=== PATIENT | male | born 1935 | race Caucasian/White ===

== ENCOUNTER 2017-04-20 11:11 | Emergency (ER) | payer MEDICARE ==
[2017-04-20 11:33] VITALS: RESP 18
[2017-04-20] MEDS ORDERED: OXYMETAZOLINE 0.05% NASL SPRAY 1 SPRAY BOTTLE NASAL STA (11:54)
--- NOTE | 2017-04-20 12:54 | ED ---
General Adult HPI - General Chief complaint: ENT Stated complaint: Bloody nose Time Seen by Provider: 04/20/17 11:45 Source: patient, RN notes reviewed, old records reviewed Mode of arrival: wheelchair Limitations: no limitations - History of Present Illness Initial comments: 81-year-old male presenting with nosebleed. Patient has had intermittent nosebleed over the past 3 days. Initially began after returning from the [place]. Began just as the patient was exiting the plane. Denies any URI symptoms. Denies any nasal trauma. Patient is currently on a baby aspirin, no other anticoagulation. He states that at home he had significant bleeding. This seemed to becoming predominantly on the right nostril. - Related Data Previous Rx's Medication Instructions Recorded Amoxic-Pot Clav 875-125Mg 1 tab PO Q12HR #10 tablet 04/20/17 [Augmentin 875-125] Allergies Allergy/AdvReac Type Severity Reaction Status Date / Time No Known Allergies Allergy Verified 04/20/17 11:29 Review of Systems ROS Statement: Those systems with pertinent positive or pertinent negative responses have been documented in the HPI. ROS Other: All systems not noted in ROS Statement are negative. Past Medical History Past Medical History: No Reported History History of Any Multi-Drug Resistant Organisms: None Reported Past Surgical History: No Surgical Hx Reported Past Psychological History: No Psychological Hx Reported Smoking Status: Never smoker Past Alcohol Use History: Occasional Past Drug Use History: None Reported General Exam Limitations: no limitations General appearance: alert, in no apparent distress Head exam: Present: atraumatic, normocephalic Eye exam: Present: normal appearance, PERRL ENT exam: Present: other (Epistaxis from right naris, there is posterior oropharynx bleeding on initial evaluation, no visualized bleeding vessel on exam , too much blood clots and active bleeding.) Respiratory exam: Present: normal lung sounds bilaterally. Absent: respiratory distress Cardiovascular Exam: Present: regular rate, normal rhythm GI/Abdominal exam: Present: soft. Absent: distended Extremities exam: Present: normal inspection Neurological exam: Present: alert, oriented X3, CN II-XII intact. Absent: motor sensory deficit Skin exam: Present: warm, dry, intact. Absent: pallor Course Vital Signs 04/20/17 11:30 Temperature 98.4 F Pulse Rate 117 H Respiratory 18 Rate Blood Pressure 123/81 O2 Sat by Pulse 97 Oximetry Medical Decision Making - Medical Decision Making 81-year-old male presenting with brisk epistaxis. No cells placed, this lasted improved symptoms. This is after bacitracin and Afrin was applied. Merocel removed, Rhino Rocket is placed, tamponade is achieved. Patient is observed in the emergency department, there is no anterior or posterior bleeding on exam. He is given strict return parameters. He is started on antibiotics, and will follow up with ENT. Disposition Clinical Impression: Epistaxis Disposition: HOME SELF-CARE Condition: Good Instructions: Nosebleed (ED) Prescriptions: Amoxic-Pot Clav 875-125Mg [Augmentin 875-125] 1 tab PO Q12HR #10 tablet Referrals: Grant Vargas MD [Primary Care Provider] - 1-2 days Ankur Guaman DO [Doctor of Osteopathic Medicine] - 1-2 days Time of Disposition: 12:52
[2017-04-20 13:07] VITALS: BP 124/80; PULSE 126; TEMP 98.1
== END 2017-04-20 13:06 | disposition home or self-care (01) ==
LOC: EC 11:11
DX: R04.0 Epistaxis (principal); J39.2 Other diseases of pharynx; Z79.82 Long term (current) use of aspirin
CPT/HCPCS: 30901; 99283

== ENCOUNTER 2019-10-11 11:51 | Emergency (ER) | payer MEDICARE ==
[2019-10-11 12:02] VITALS: TEMP 98.3
--- NOTE | 2019-10-11 13:03 | ED ---
General Adult HPI - General Chief complaint: Extremity Injury, Lower Stated complaint: lt foot swelling Time Seen by Provider: 10/11/19 12:05 Source: patient Mode of arrival: wheelchair Limitations: no limitations - History of Present Illness Initial comments: 84-year-old male without any significant past medical history presents to the emergency department for left leg pain. Patient states that 2 weeks ago he fell off of a roof onto his left side. Patient states that he did have some mild pain in his ankle and hip at that time but it was bearable. Patient states he dropped a log on his left ankle a few days ago which worsened the pain. Patient states that sometimes he has noticed swelling in the left leg. Patient is able to ambulate however family member states he walks with somewhat of a limp. Patient did not hit his head when he fell 2 weeks ago. He does not take blood thinners. Patient does report he has a shooting pain from the left ankle to the left hip at times. He denies any lumbar pain. Patient has no other complaints at this time including shortness of breath, chest pain, abdominal pain, nausea or vomiting, headache, or visual changes. - Related Data Home Medications Medication Instructions Recorded Confirmed Aspirin 81 mg PO DAILY 04/20/17 04/20/17 Lisinopril (Unknown Dose) 1 tab PO DAILY 04/20/17 04/20/17 Previous Rx's Medication Instructions Recorded Amoxic-Pot Clav 875-125Mg 1 tab PO Q12HR #10 tablet 04/20/17 [Augmentin 875-125] predniSONE 30 mg PO DAILY 5 Days #15 tab 10/11/19 Allergies Allergy/AdvReac Type Severity Reaction Status Date / Time No Known Allergies Allergy Verified 10/11/19 11:55 Review of Systems ROS Statement: Those systems with pertinent positive or pertinent negative responses have been documented in the HPI. ROS Other: All systems not noted in ROS Statement are negative. Past Medical History Past Medical History: No Reported History History of Any Multi-Drug Resistant Organisms: None Reported Past Surgical History: No Surgical Hx Reported Past Psychological History: No Psychological Hx Reported Smoking Status: Never smoker Past Alcohol Use History: Occasional Past Drug Use History: None Reported General Exam Limitations: no limitations General appearance: alert, in no apparent distress Head exam: Present: atraumatic, normocephalic, normal inspection Eye exam: Present: normal appearance, PERRL, EOMI. Absent: scleral icterus, conjunctival injection, periorbital swelling ENT exam: Present: normal exam, mucous membranes moist Neck exam: Present: normal inspection, full ROM. Absent: tenderness, meningismus, lymphadenopathy Respiratory exam: Present: normal lung sounds bilaterally. Absent: respiratory distress, wheezes, rales, rhonchi, stridor Cardiovascular Exam: Present: regular rate, normal rhythm, normal heart sounds. Absent: systolic murmur, diastolic murmur, rubs, gallop, clicks GI/Abdominal exam: Present: soft, normal bowel sounds. Absent: distended, tenderness, guarding, rebound, rigid Extremities exam: Present: full ROM (full range of motion of the left lower extremity including the hip and knee and ankle joints.), tenderness (mild tenderness to the dorsum of the left ankle. no tenderness to the left hip or knee. No tenderness of the left foot.), normal capillary refill (capillary refill less than 2 seconds, DP pulse 2+ in the left lower extremity.), other (patient does have scaling noted to the distal left leg.). Absent: calf tenderness (no calf tenderness or significant edema noted.) Back exam: Absent: vertebral tenderness (no thoracic or lumbar spine tenderness) Course Vital Signs 10/11/19 11:56 Temperature 98.3 F Pulse Rate 59 L Respiratory 18 Rate Blood Pressure 159/92 O2 Sat by Pulse 98 Oximetry Medical Decision Making - Medical Decision Making X-ray of the pelvis and left hip shows mild degenerative changes without acute osseous abnormality. Left ankle shows mild spurring with soft tissue swelling. Plantar heel spur. No acute osseous abnormality. Ultrasound shows no evidence of DVT within the lower extremity. HPI physical exam as documented. Patient reports pain radiates from the left foot and left hip. Worsens with certain movements. This comes as a gnawing sharp pain. Patient was evaluated by Dr. Walker as well. At this time pain is consistent with sciatica. Patient will be started on steroids and Tylenol and will follow-up with Dr. Marte. Discussed stretches. Will return here for any worsening symptoms. Disposition Clinical Impression: Leg pain Disposition: HOME SELF-CARE Condition: Good Instructions (If sedation given, give patient instructions): Sciatica (ED), Lower Back Exercises (ED) Additional Instructions: please take Tylenol for pain. Take steroid as directed. Please try low back exercises as discussed. Follow-up with Dr. Marte by calling tomorrow for earliest appointment. Return to the emergency room for any worsening symptoms. Prescriptions: predniSONE 30 mg PO DAILY 5 Days #15 tab Is patient prescribed a controlled substance at d/c from ED?: No Referrals: Grant Vargas MD [Primary Care Provider] - 1-2 days Sonal Marte DO [Doctor of Osteopathic Medicine] - 1-2 days Time of Disposition: 14:01
--- NOTE | 2019-10-11 13:07 | XR ---
EXAMINATION TYPE: AP view pelvis and 2 views left hip XR ankle complete 3 views LT DATE OF EXAM: 10/11/2019 COMPARISON: NONE HISTORY: 84-year-old male pain and swelling after fall. FINDINGS: Pelvis and left hip: Mild degenerative change at both hips. SI joints and pubic symphysis appear intact. Smooth delineatio n to the arcuate lines of the sacrum. No acute fracture, subluxation, or dislocation is seen. Some co rticated density is seen adjacent to the left greater trochanter suggesting heterotopic ossification such as as a sequela of chronic gluteal tendinopathy. Degenerative change lower lumbar spine. Left ankle: Corticated bone density below the medial malleolus. Some degenerative spurring is present. Ankle mort ise congruent with preservation of the distal tibiofibular overlap. Moderate sized plantar calcaneal spur. Vascular calcifications. Some soft tissue swelling is noted. No acute fracture, subluxation, or dislocation. IMPRESSION: 1. Pelvis and left hip: Mild degenerative change at both sites. No acute osseous abnormal ECG. 2. Left ankle: Some degenerative spurring such as at the medial malleolus. Soft tissue swelling. 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 No acute osseous abnormality seen.
--- NOTE | 2019-10-11 13:34 | US ---
EXAMINATION TYPE: US venous doppler duplex LE LT DATE OF EXAM: 10/11/2019 12:12 PM COMPARISON: NONE CLINICAL HISTORY: 84-year-old male pain. SIDE PERFORMED: Left TECHNIQUE: The lower extremity deep venous system is examined utilizing real time linear array sonog ivan with graded compression, doppler sonography and color-flow sonography. FINDINGS: VESSELS IMAGED: External Iliac Vein (EIV) Common Femoral Vein Deep Femoral Vein Greater Saphenous Vein * Femoral Vein Popliteal Vein Small Saphenous Vein * Proximal Calf Veins (* superficial vessels) Left Leg: Negative for DVT IMPRESSION: No evidence for DVT within the left lower extremity imaged from the groin to the upper calf.
[2019-10-11 14:35] VITALS: BP 141/79; PULSE 88; RESP 16
== END 2019-10-11 14:18 | disposition home or self-care (01) ==
LOC: EC 11:51
DX: M77.32 Calcaneal spur, left foot (principal); M16.11 Unilateral primary osteoarthritis, right hip
CPT/HCPCS: 73502; 99284

== ENCOUNTER 2023-02-24 16:13 | Emergency (ER) | payer MEDICARE ==
--- NOTE | 2023-02-24 16:22 | ED ---
General Adult HPI - General Stated complaint: stroke symptoms Time Seen by Provider: 02/24/23 16:16 Source: family, EMS, RN notes reviewed, old records reviewed Limitations: altered mental status, physical limitation - History of Present Illness Initial comments: Patient is a 87-year-old male presenting to the emergency department by EMS for potential for stroke. Last known well was 2:30 PM. Patient went outside and was moving snow. Family did witness him moving the snow around and then went into the backyard and did not see him. They did go back and found patient lying in the snow altered and weak. No reported trauma. Patient is nonverbal and not able to provide any history. - Related Data Home Medications Medication Instructions Recorded Confirmed Aspirin 81 mg PO DAILY 04/20/17 04/20/17 Lisinopril (Unknown Dose) 1 tab PO DAILY 04/20/17 04/20/17 Previous Rx's Medication Instructions Recorded Amoxic-Pot Clav 875-125Mg 1 tab PO Q12HR #10 tablet 04/20/17 [Augmentin 875-125] predniSONE 30 mg PO DAILY 5 Days #15 tab 10/11/19 Allergies Allergy/AdvReac Type Severity Reaction Status Date / Time No Known Allergies Allergy Verified 02/24/23 16:20 Review of Systems ROS Statement: Those systems with pertinent positive or pertinent negative responses have been documented in the HPI. ROS Other: All systems not noted in ROS Statement are negative. Limitations: ROS unobtainable due to patients medical condition Neurological: Reports: weakness Past Medical History Past Medical History: No Reported History History of Any Multi-Drug Resistant Organisms: None Reported Past Surgical History: No Surgical Hx Reported Past Psychological History: No Psychological Hx Reported Smoking Status: Never smoker Past Alcohol Use History: Occasional Past Drug Use History: None Reported General Exam Limitations: altered mental status, physical limitation General appearance: alert Head exam: Present: atraumatic Eye exam: Present: normal appearance, other (Eyes deviated to the left) ENT exam: Present: normal exam Neck exam: Present: normal inspection Respiratory exam: Present: normal lung sounds bilaterally Cardiovascular Exam: Present: regular rate, normal rhythm GI/Abdominal exam: Present: soft. Absent: tenderness Extremities exam: Present: normal inspection Neurological exam: Present: alert, altered Expanded Neurological exam: Present: other (Limited exam secondary to patient having difficulty following commands. Unable to assess sensation. Eyes deviated to the left) Cranial nerves: EOM's Intact: Abnormal Right, Facial Palsy with Forehead Movement: Abnormal Right (Right facial droop) Motor strength exam: RUE: 2/1, LUE: 5, RLE: 2/1, LLE: 5 Eye Response: (4) open spontaneously Motor Response: (4) withdraws to pain Verbal Response: (1) no verbal response Psychiatric exam: Present: flat affect Skin exam: Present: normal color Course Vital Signs 02/24/23 16:15 Pulse Rate 78 Respiratory 18 Rate Blood Pressure 164/125 O2 Sat by Pulse 95 Oximetry Medical Decision Making - Medical Decision Making At 1630 case was discussed with Dr. Navarrete and he will review films and call back. Was pt. sent in by a medical professional or institution (, PA, ASSEMBLER INSULATOR, urgent care, hospital, or [facility]...) When possible be specific @ -No Did you speak to anyone other than the patient for history (EMS, parent, family, police, friend...)? What history was obtained from this source @ -EMS and family provides history as patient is nonverbal Did you review nursing and triage notes (agree or disagree)? Why? @ -I reviewed and agree with nursing and triage notes Were old charts reviewed (outside hosp., previous admission, EMS record, old EKG, old radiological studies, urgent care reports/EKG's, [facility] records)? Report findings @ -No old charts were reviewed Differential Diagnosis (chest pain, altered mental status, abdominal pain women, abdominal pain men, vaginal bleeding, weakness, fever, dyspnea, syncope, headache, dizziness, GI bleed, back pain, seizure, CVA, palpatations, mental health, musculoskeletal)? @ -Differential Weakness: Hypoglycemia, shock, sepsis, hyponatremia, anemia, infection, MA, ETOH, adverse medicine reaction, overdose, stroke, this is not meant to be an all-inclusive list. EKG interpreted by me (3pts min.). @ -As above X-rays interpreted by me (1pt min.). @ -None done CT interpreted by me (1pt min.). @ -Computed tomography scan of the brain shows left intracranial hemorrhage U/S interpreted by me (1pt. min.). @ -None done What testing was considered but not performed or refused? (CT, X-rays, U/S, labs)? Why? @ -None What meds were considered but not given or refused? Why? @ -Considered TPA however patient has intercranial hemorrhage and not a candidate. Risks outweigh benefits. Did you discuss the management of the patient with other professionals (professionals i.e. , PA, ASSEMBLER INSULATOR, lab, RT, psych nurse, executive secretary social welfare, pattern molder, teacher, aoc director combat plans officer, case resource manager)? Give summary @ -Case was discussed with Dr. Navarrete who does recommend transfer. Transfer team contacted and we'll attempt to transfer patient to [facility]. He recommends systolic blood pressure less than 150. Discussion regarding intubation and he does not feel is necessary at this time. Was smoking cessation discussed for >3mins.? @ -No Was critical care preformed (if so, how long)? @ -33 minutes critical care time Were there social determinants of health that impacted care today? How? (Homelessness, low income, unemployed, alcoholism, drug addiction, transportation, low edu. Level, literacy, decrease access to med. care, [place] [facility], rehab)? @ -No Was there de-escalation of care discussed even if they declined (Discuss DNR or withdrawal of care, Hospice)? DNR status @ -No What co-morbidities impacted this encounter? (DM, HTN, Smoking, COPD, CAD, Cancer, CVA, ARF, Chemo, Hep., AIDS, mental health diagnosis, sleep apnea, morbid obesity)? @ -None Was patient admitted / discharged? Hospital course, mention meds given and route, prescriptions, significant lab abnormalities, going to OR and other pertinent info. @ -Patient reevaluated and unchanged. Patient still does protect airway. Family updated. Patient will be transferred Undiagnosed new problem with uncertain prognosis? @ -No Drug Therapy requiring intensive monitoring for toxicity (Heparin, Nitro, Insulin, Cardizem)? @ -No Were any procedures done? @ -No Diagnosis/symptom? @ -Intercranial hemorrhage Acute, or Chronic, or Acute on Chronic? @ -Acute Uncomplicated (without systemic symptoms) or Complicated (systemic symptoms)? @ -Complicated with weakness Side effects of treatment? @ -No Exacerbation, Progression, or Severe Exacerbation? @ -No Poses a threat to life or bodily function? How? (Chest pain, USA, MA, pneumonia, PE, COPD, DKA, ARF, appy, cholecystitis, CVA, Diverticulitis, Homicidal, Suicidal, threat to staff... and all critical care pts) @ -No Eunice Lange notified, Dr. Howard to accept transfer - Lab Data Result diagrams: 02/24/23 16:35 Lab Results 02/24/23 02/24/23 02/24/23 Range/Units 16:35 16:35 16:36 WBC 9.4 (3.8-10.6) k/uL RBC 4.80 (4.30-5.90) m/uL Hgb 15.4 (13.0-17.5) gm/dL Hct 46.6 (39.0-53.0) % MCV 97.1 (80.0-100.0) fL MCH 32.2 (25.0-35.0) pg MCHC 33.1 (31.0-37.0) g/dL RDW 13.3 (11.5-15.5) % Plt Count 345 (150-450) k/uL MPV 7.3 Neutrophils % 74 % Lymphocytes % 15 % Monocytes % 5 % Eosinophils % 4 % Basophils % 1 % Neutrophils # 6.9 (1.3-7.7) k/uL Lymphocytes # 1.4 (1.0-4.8) k/uL Monocytes # 0.5 (0-1.0) k/uL Eosinophils # 0.4 (0-0.7) k/uL Basophils # 0.0 (0-0.2) k/uL PT 10.1 (10.0-12.5) sec INR 0.9 (<1.2) APTT 22.1 (22.0-30.0) sec POC Glucose (mg/dL) 48 L (70-110) mg/dL POC Glu [employer] Specialist ID Monique Bhatt Critical Care Time Critical Care Time: Yes Total Critical Care Time: 33 Disposition Clinical Impression: Intracranial hemorrhage Disposition: OTHER INSTITUTION NOT DEFINED Condition: Critical Is patient prescribed a controlled substance at d/c from ED?: No Referrals: Grant Vargas [Primary Care Provider] - 1-2 days Time of Disposition: 16:51 - Out of Hospital Transfer - Req. Specs Out of Hospital Transfer - Requested Specifics: Other Emergency Center
[2023-02-24 16:29] VITALS: PULSE 78; RESP 18
[2023-02-24 16:38] LABS: Glucose,Whole Blood 48 mg/dL (70-110)
[2023-02-24 16:43] LABS: Basophils % (A) 1 %; Eosinophils # (A) 0.4 k/uL (0-0.7); Eosinophils % (A) 4 %; HCT 46.6 % (39.0-53.0); HGB 15.4 gm/dL (13.0-17.5); Lymphocytes # (A) 1.4 k/uL (1.0-4.8); Lymphocytes % (A) 15 %; MCH 32.2 pg (25.0-35.0); MCHC 33.1 g/dL (31.0-37.0); MCV 97.1 fL (80.0-100.0); Mean Platelet Volume 7.3; Monocytes # (A) 0.5 k/uL (0-1.0); Monocytes % (A) 5 %; Neutrophils # (A) 6.9 k/uL (1.3-7.7); Neutrophils % (A) 74 %; Platelet Count 345 k/uL (150-450); RDW 13.3 % (11.5-15.5); WBC 9.4 k/uL (3.8-10.6)
[2023-02-24 16:54] LABS: INR 0.9 (<1.2); Partial Thromboplastin Time 22.1 sec (22.0-30.0); Prothrombin Time 10.1 sec (10.0-12.5)
[2023-02-24] MEDS ORDERED: niCARdipine 20 MG in SODIUM CHLORIDE 0.9% 192 ML IV SCH (17:00)
--- NOTE | 2023-02-24 17:00 | CT ---
EXAMINATION TYPE: CT brain wo con for TPA CT DLP: 1101.6 mGycm, Automated exposure control for dose reduction was used. DATE OF EXAM: 02/24/2023 4:34 PM COMPARISON: None. CLINICAL INDICATION:Male, 87 years old with history of Neuro deficit, acute, stroke suspected, right side weakness, AMS, no prior in pacs DLP: 1101.6 DB TECHNIQUE: Brain: Axial CT images of the brain were obtained with coronal and sagittal reformats created and rev iewed. Contrast used: None. Oral contrast used: None. FINDINGS: There is a relatively large area of increased attenuation consistent with intraparenchymal hematoma o n the left in the basal ganglia region measuring up to 5.1 x 3.9 cm axially and extends up to 4 cm cr aniocaudally. There is a thin fingerlike projection of hemorrhage which extends from this posteriorly and medially in the region of the caudate. No definite evidence of intraventricular extension of blo od at this time. Associated edema causes mild mass effect on adjacent structures including the left l ateral ventricle, the midportion of which is mildly narrowed and compressed. Mild bowing and midline shift towards the right of about 2 mm at the level of the thalami. The other ventricles are mildly pr ominent likely related to brain volume loss and not definite hydrocephalus at this time. There is moderate generalized atrophy and patchy hypoattenuation throughout the cerebral white matter suggesting most likely moderate chronic ischemic changes. No extra-axial fluid collection is seen. B rand cisterns are patent. No evidence of brain herniation. Moderate to heavy atherosclerotic calcification of the carotid siphons. No acute osseous abnormality is seen. There is mild to moderate diffuse mucosal thickening throughout the paranasal sinuses with p robable superimposed fluid level in the left maxillary, possible tiny amount of fluid in the right ma xillary and left sphenoid sinus. Mastoid air cells are generally clear. IMPRESSION: 1. Relatively large acute intraparenchymal hematoma in the left cerebral hemisphere, centered in the basal ganglia region measures up to 5.1 x 3.9 x 4 cm. A fingerlike projection of hemorrhage also ext ends from this in the region of the caudate. 2. Mild mass effect on adjacent structures including the midportion of the left lateral ventricle wh ich is mildly compressed and narrowed. 3. Mild midline shift towards the right of about 2 mm at the level of the thalami. Close follow-up a dvised. 4. Mild ventriculomegaly likely related to brain volume loss, without definite hydrocephalus at this time. 5. Moderate generalized brain atrophy and chronic microvascular ischemic changes.
[2023-02-24 17:31] LABS: Glucose,Whole Blood 161 mg/dL (70-110)
[2023-02-24 17:33] VITALS: BP 165/100
--- NOTE | 2023-02-24 17:50 | CT ---
EXAMINATION TYPE: CT angio head neck DATE OF EXAM: 02/24/2023 4:45 PM COMPARISON: Correlation with same-day CT brain. CLINICAL INDICATION:Male, 87 years old with history of Neuro deficit, acute, stroke suspected; PHH, A MS, right side weakness TECHNIQUE: Axially acquired helical CT angiogram of the head and neck was obtained with contrast. Axi al images are supplemented with 3D reconstructions which [facility]. NASCET criteria used. Contrast used: 65 mL of Isovue 370 with IV Contrast, Oral contrast used: None. CT DLP: 445 mGycm, Automated exposure control for dose reduction was used. FINDINGS: CTA Neck: A 3 vessel aortic arch is shown. There is no significant atherosclerotic plaque in the aortic arch o r the origins of the branch vessels. Ascending aorta 3.3 cm, descending 2.6 cm. Pulmonary trunk 2.9 c m, within normal limits. Visualized heart appears mildly enlarged with moderate coronary artery calcifications on the left. Right carotid system: The common carotid is patent. No significant atherosclerotic disease at the car otid bifurcation or proximal ICA. There is no hemodynamically significant diameter stenosis, dissecti on, nor pseudoaneurysm present. ECA is patent. Left carotid system: The common carotid is patent. Mild/moderate mostly calcified plaque at the left carotid bifurcation and proximal ICA. There is no hemodynamically significant diameter stenosis, diss ection, nor pseudoaneurysm present. ECA is patent. Vertebral arteries: There is no significant atherosclerotic plaque at the origins of the vertebral ar teries. The vertebrals are then otherwise patent to the skull base. The left vertebral artery is dominant. Other: Visualized neck soft tissues show no concerning abnormality. Cervical spine appears intact wit h mild/moderate degenerative changes noted. There is an 11.5 mm hypodense right thyroid nodule with s lightly irregular borders. Suspect 1 or 2 tiny nodules in the left lobe as well. Moderate degenerativ e change of the shoulders, especially the right. Upper lungs show some chronic appearing parenchymal changes without evidence of acute consolidation or pneumothorax. Mild emphysema. CTA Head: There are moderate calcifications of the cavernous portions of the ICAs without significant stenosis. Supraclinoid ICAs, bifurcations, ACAs, MCAs appear normally patent. A1 segment of the right DINORAH is re latively hypoplastic but patent, and the more distal artery is patent. Anterior communicating artery is not definitely seen but there is no regional aneurysm suggested. Bilateral MCAs and distal arboriz ation pattern appear maintained. There is no sizable aneurysm or arterial venous malformation demonst rated. Redemonstration of the left basal ganglia region hematoma, without significant change in size. There are tiny areas of increased attenuation at its posterior and medial aspects, of uncertain etiology bu t could represent small foci of hemorrhage. The intracranial vertebral arteries enhance normally, the left is dominant. Basilar artery is patent and unremarkable. Normal basilar bifurcation without evidence of aneurysm. 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 A right posterior communicating artery is not definitely seen. A left posterior communicating artery is seen, courses around the clinoid before likely giving the ma jority supply to the left [employer]. No intracranial large vessel occlusion, hemodynamically significant stenosis, aneurysm, dissection, o r arteriovenous malformation is shown. The dural venous sinuses appear grossly patent without evidence of thrombosis. Right transverse sinus appears larger than the left. Other: Please refer to same-day CT head report for further description of findings. IMPRESSION: CTA neck: 1. No dissection, hemodynamically significant stenosis, or pseudoaneurysm detected in the carotid or vertebral arteries in the neck. 2. Mild atherosclerotic disease at the left carotid bifurcation without hemodynamically significant stenosis. 3. Small hypodense thyroid nodules, could be further assessed with outpatient TFTs and ultrasound. CTA head: 1. No intracranial large vessel occlusion, significant stenosis, or sizable aneurysm detected in the limits of CTA. 2. Redemonstration left basal ganglia region hematoma, without significant change in size. There are tiny areas of increased attenuation at its posterior and medial aspects, of uncertain etiology but c ould represent small foci of hemorrhage.
[2023-02-24 18:10] LABS: ALT 18 U/L (4-49); AST 29 U/L (17-59); African American GFR (CKD) 56 (>60 ml/min/1.73 sqM); Albumin 4.1 g/dL (3.5-5.0); Alkaline Phosphatase 80 U/L (38-126); Anion Gap 15 mmol/L; Blood Urea Nitrogen 26 mg/dL (9-20); Calcium 9.3 mg/dL (8.4-10.2); Carbon Dioxide 20 mmol/L (22-30); Chloride 108 mmol/L (98-107); Creatine Kinase 151 U/L (55-170); Glucose 100 mg/dL (74-99); Non-African American GFR(CKD) 48 (>60 ml/min/1.73 sqM); Potassium 4.6 mmol/L (3.5-5.1); Sodium 143 mmol/L (137-145); Total Bilirubin 0.6 mg/dL (0.2-1.3)
--- NOTE | 2023-02-24 19:10 | XR ---
EXAM: XR chest 1V portable CLINICAL INDICATION:Male, 87 years old with history of altered mental status; PHH COMPARISON: None. TECHNIQUE: Chest single view. FINDINGS: Lines/tubes/devices: EKG leads overlie the chest. No indwelling lines are seen. Cardiomediastinum: Cardiac silhouette appears mildly enlarged. Tortuous ectatic aorta. Vasculature: No increased pulmonary vasculature. Lungs/pleura: Lung volumes are diminished, with crowding of lung markings and minor bibasilar opacities likely on t he basis of atelectasis. Mildly coarsened interstitial lung markings, likely chronic/senescent change s. Otherwise no definite confluent consolidative process, sizable effusion, or pneumothorax demonstra [place]. Bones/soft tissues: Bony thorax appears grossly intact as seen. Moderate to severe degenerative change of the right shoul alda with high riding humeral head suggesting rotator cuff disease. Mild to moderate degenerative huston ge of the left shoulder. Moderate degenerative change in the visualized cervical spine and mild to mo derate degenerative change in the visualized dorsal spine. Regional soft tissues show no acute abnormality. Mild asymmetric elevation right hemidiaphragm. IMPRESSION: * Mild cardiomegaly and tortuous ectatic aorta. No evidence of CHF. * Low lung volumes with hypoventilatory changes. * Mildly coarsened interstitial lung markings, likely chronic/senescent changes. No focal airspace d isease, pleural effusion, pneumothorax.
== END 2023-02-24 17:32 | disposition other institution (70) ==
LOC: EC 16:13
DX: I62.9 Nontraumatic intracranial hemorrhage, unspecified (principal); E04.2 Nontoxic multinodular goiter; G93.89 Other specified disorders of brain; I51.7 Cardiomegaly; I67.82 Cerebral ischemia; Z79.82 Long term (current) use of aspirin
CPT/HCPCS: 36415; 80053; 82550; 85025; 85610; 85730; 71045; 70496; 70450; 70498; 99291; 96374; Q9967